=== PATIENT | female | born 1995 | race Hispanic/Latino ===

== ENCOUNTER 2024-03-10 17:20 | Inpatient (IN) | payer MEDICAID ==
[2024-03-10] MEDS ORDERED: Ondansetron PF 4 MG/2 ML Vial IVP PRN (17:34)
[2024-03-10] MEDS ORDERED: Misoprostol 200 MCG TAB PR PRN (17:34)
[2024-03-10] MEDS ORDERED: Tranexamic Acid 1,000 MG/10 ML VIAL IVP PRN (17:34)
[2024-03-10] MEDS ORDERED: Bicitra 30 ML UDCUP PO PRN (17:34)
[2024-03-10] MEDS ORDERED: Carboprost 250 MCG/ML AMP IM PRN (17:34)
[2024-03-10] MEDS ORDERED: Diphenoxylate HCl/Atropine Tablet PO PRN (17:34)
[2024-03-10] MEDS ORDERED: hydrALAZINE 20 MG/ML VIAL SLOW IVP PRN (17:34)
[2024-03-10] MEDS ORDERED: Promethazine HCl 25 MG/ML VIAL IM PRN (17:34)
[2024-03-10] MEDS ORDERED: Famotidine/PF 20 mg/2ml Vial SLOW IVP PRN (17:34)
[2024-03-10] MEDS ORDERED: Methylergonovine 0.2 MG/ML VIAL IM PRN (17:34)
[2024-03-10] MEDS ORDERED: CEFAZOLIN 2 GM in Sodium Chloride 0.9% 100 ML IVPB SCH (17:45)
[2024-03-10] MEDS ORDERED: Oxytocin 30 units/NS 500 ML 500 ML IV SCH (17:45)
[2024-03-10 18:05] LABS: Hematocrit 33.8 % (34.9-44.5); Hemoglobin 10.5 g/dL (12.0-15.5); Mean Corpuscular HGB CONC 31.1 g/dL (32.0-36.0); Mean Corpuscular Hemoglobin 23.1 pg (27.0-33.0); Mean Corpuscular Volume 74.4 fL (81.6-98.3); Mean Platelet Volume 9.9 fL (7.4-10.4); Platelet Count 287 10x3/uL (150-450); RBC Distribution Width 17.2 % (11.5-14.5); Red Blood Cell (RBC) Count 4.54 10x6/uL (3.90-5.03); White Blood Cell (WBC) Count 9.6 10x3/uL (3.5-10.5)
[2024-03-10 18:11] VITALS: BMI 30.2
[2024-03-10 18:30] LABS: HBsAg Index 0.21 S/CO (0-0.99); Hep B Surf Ag - L&D Non-Reactive S/CO (NonReactive); Syphilis Antibody Nonreactive (Nonreactive); Syphilis Antibody Index 0.04 S/CO (<1.00 Non-Reactive)
[2024-03-10] MEDS ORDERED: Boostrix 0.5 ML (Tdap) VIAL (>/=7 yrs of age) IM ONE (18:40)
[2024-03-10] MEDS ORDERED: Simethicone Chewable 80 MG TAB PO PRN (18:40)
[2024-03-10 19:51] LABS: HIV (1/2) Antibody/Antigen Non-Reactive (NonReactive); HIV 1/2 INDEX 0.04 S/CO (<1.00)
[2024-03-10] MEDS: Morphine PF 10 MG/10 ML VIAL ONE (21:22)
[2024-03-10] MEDS: Ondansetron PF 4 MG/2 ML Vial ONE (21:22)
[2024-03-10] MEDS: Oxytocin 10 UNITS/ML VIAL ONE (21:22)
[2024-03-10] MEDS: CEFAZOLIN 2 GM VIAL ONE (21:22)
[2024-03-10] MEDS: PHENYLEPHRINE-NS 100 MCG/ML 10 ML SYRINGE ONE (21:22)
[2024-03-10] MEDS: Dexamethasone 10 MG/ML VIAL ONE (21:22)
[2024-03-10] MEDS: Acetaminophen 325 MG TAB PO SCH (21:23)
[2024-03-10] MEDS: Docusate 100 MG CAP PO SCH (21:23)
[2024-03-10] MEDS: Ketorolac Tromethamine 30 MG (1 mL) VIAL ONE (21:23)
[2024-03-11] MEDS: Ketorolac Tromethamine 30 MG (1 mL) VIAL IVP SCH (00:33)
[2024-03-11] MEDS ORDERED: HYDROcodone/Acetaminophen 5/325 mg Tablet PO PRN (06:15)
[2024-03-11 06:49] LABS: Hematocrit 31.8 % (34.9-44.5); Hemoglobin 9.4 g/dL (12.0-15.5); Mean Corpuscular HGB CONC 29.6 g/dL (32.0-36.0); Mean Corpuscular Hemoglobin 22.1 pg (27.0-33.0); Mean Corpuscular Volume 74.6 fL (81.6-98.3); Mean Platelet Volume 9.7 fL (7.4-10.4); Platelet Count 268 10x3/uL (150-450); RBC Distribution Width 16.9 % (11.5-14.5); Red Blood Cell (RBC) Count 4.26 10x6/uL (3.90-5.03)
[2024-03-11] MEDS: HYDROcodone/Acetaminophen 5/325 mg Tablet PO PRN (14:36)
[2024-03-11] MEDS: Ferrous Sulfate 325 MG TAB PO SCH (14:37)
[2024-03-11] MEDS: Ibuprofen 800 MG TAB PO SCH (18:18)
[2024-03-12] MEDS: Ibuprofen 800 MG TAB PO SCH (02:39)
[2024-03-12 09:46] VITALS: BP 101/57; TEMP 98.1
== END 2024-03-12 13:10 | disposition home or self-care (01) | DRG 788 ==
LOC: CSHLD/OP 17:20 → CSHLD 17:34 → CSHPED 20:45
PROVIDERS: ADMIT Obstetrics & Gynecology; ATTEND Obstetrics & Gynecology
PROC: 10D00Z1 Extraction of Products of Conception, Low, Open Approach (ICD-10-PCS; principal; 2024-03-10)
DX: O34.211 Maternal care for low transverse scar from previous cesarean delivery (principal); Z3A.36 36 weeks gestation of pregnancy; Z37.0 Single live birth; O32.1XX0 Maternal care for breech presentation, not applicable or unspecified; O99.02 Anemia complicating childbirth; D50.9 Iron deficiency anemia, unspecified
CPT/HCPCS: 36415; 51702; 85027; 86762; 86780; 86850; 86870; 86900; 86901; 86922; 87340; 87389; 99285; J1100; J1885; J2274; J2405; J2590